=== PATIENT | female | born 1950 | race Asian ===

== ENCOUNTER 2018-07-12 22:06 | Emergency (ER) | payer MEDICAID ==
[~2018-07-12] VITALS: Ht 152.4 cm; Wt 20.4 kg
[2018-07-12 22:10] VITALS: BP_SYST 126
[2018-07-12] MEDS ORDERED: NACL 0.9% 1,000 ML IV ONE (22:36)
[2018-07-12] MEDS ORDERED: ONDANSETRON HCL 4 MG/2 ML VIAL IVP ONE (22:45)
[2018-07-12] MEDS ORDERED: PANTOPRAZOLE SODIUM 40 MG/VIAL (PROTONIX) IVP ONE (22:45)
[2018-07-12 23:07] LABS: ANION GAP 5 (5-15); CALCIUM 8.8 mg/dL (8.4-11.0); CHLORIDE 101 mmol/L (98-107); CREATININE 0.56 mg/dL (0.55-1.30); GLUCOSE 111 mg/dL (70-99); POTASSIUM 4.2 mmol/L (3.5-5.1); SODIUM SERUM 136 mmol/L (136-145); UREA NITROGEN, BLOOD 17 mg/dL (8-21)
[2018-07-12 23:12] LABS: PROTHROMBIN TIME 10.6 SECS (9.5-12.5)
[2018-07-12 23:16] LABS: ALANINE AMINOTRANSFERASE 20 U/L (12-78); ALBUMIN 3.7 g/dL (3.4-4.8); ASPARTATE AMINOTRANSFERASE 22 U/L (10-37); BASOPHILS # (AUTO) 0.1 K/uL (0.0-0.2); BASOPHILS % (AUTO) 1.5 % (0.0-2.0); EOSINOPHILS # (AUTO) 0.2 K/uL (0.0-0.4); EOSINOPHILS % (AUTO) 5.7 % (0.0-4.0); HEMATOCRIT 35.5 % (36-48); LYMPHOCYTES # (AUTO) 1.1 K/uL (1.0-5.5); LYMPHOCYTES % (AUTO) 27.1 % (20.5-51.5); MEAN CORPUSCULAR HEMOGLOBIN 33 pg (27-31); MEAN CORPUSCULAR HGB CONC 34 % (32-36); MEAN CORPUSCULAR VOLUME 97 fL (79.0-98.0); MONOCYTES # (AUTO) 0.3 K/uL (0.0-1.0); MONOCYTES % (AUTO) 8.5 % (1.7-9.3); NEUTROPHILS # (AUTO) 2.3 K/uL (1.8-7.7); NEUTROPHILS % (AUTO) 57.2 % (40.0-70.0); PLATELET COUNT (AUTO) 134 K/uL (130-430); RED BLOOD CELL COUNT(AUTO) 3.65 MIL/uL (4.2-6.2); RED CELL DISTRIBUTION WIDTH 11.6 % (9.0-15.0); TOTAL BILIRUBIN 0.5 mg/dL (0.0-1.0)
[2018-07-12 23:18] LABS: GFR AFRICAN AMERICAN 138 mL/min (>90)
[2018-07-13 01:56] VITALS: BP_SYST 126
== END 2018-07-13 01:55 | disposition home or self-care (01) ==
LOC: SED 22:06
DX: K29.70 Gastritis, unspecified, without bleeding (principal); R63.0 Anorexia; Z90.49 Acquired absence of other specified parts of digestive tract
CPT/HCPCS: 36415; 71045; 74176; 80053; 84484; 85025; 85610; 85730; 93005; 96361; 96374; 96375; 99285; C9113; J2405; J7030

== ENCOUNTER 2019-08-05 08:36 | Emergency (ER) | payer MEDICAID ==
[~2019-08-05] VITALS: Ht 157.5 cm; Wt 40.8 kg
[2019-08-05 08:36] VITALS: BP_SYST 116
[2019-08-05] MEDS ORDERED: KETOROLAC TROMETHAMINE 60 MG/2 ML VIAL IM ONE (09:30)
[2019-08-05] MEDS ORDERED: PROCHLORPERAZINE EDISYLATE 10 MG/2 ML VIAL IM ONE (09:30)
[2019-08-05 09:56] LABS: HEMATOCRIT 37.5 % (36-48); MEAN CORPUSCULAR HEMOGLOBIN 34 pg (27-31); MEAN CORPUSCULAR HGB CONC 35 % (32-36); MEAN CORPUSCULAR VOLUME 96 fL (79.0-98.0); PLATELET COUNT (AUTO) 122 K/uL (130-430); RED BLOOD CELL COUNT(AUTO) 3.89 MIL/uL (4.2-6.2); RED CELL DISTRIBUTION WIDTH 12.6 % (9.0-15.0); WHITE BLOOD COUNT (AUTO) 3.4 K/uL (4.8-10.8)
[2019-08-05 10:06] LABS: ANION GAP 6 (5-15); CALCIUM 7.9 mg/dL (8.4-11.0); CHLORIDE 102 mmol/L (98-107); CREATININE 0.59 mg/dL (0.55-1.30); GLUCOSE 103 mg/dL (70-99); POTASSIUM 3.7 mmol/L (3.5-5.1); SODIUM SERUM 136 mmol/L (136-145); UREA NITROGEN, BLOOD 7 mg/dL (8-21)
[2019-08-05 10:12] LABS: ALANINE AMINOTRANSFERASE 23 U/L (12-78); ALBUMIN 3.9 g/dL (3.4-4.8); ASPARTATE AMINOTRANSFERASE 20 U/L (10-37); TOTAL BILIRUBIN 0.5 mg/dL (0.0-1.0)
[2019-08-05 11:21] LABS: ATYPICAL LYMPHOCYTES % 16 % (0-0); LYMPHOCYTES % (MANUAL) 17 % (20-46)
[2019-08-05 11:22] LABS: BASOPHILS % (MANUAL) 0 % (0-2); EOSINOPHILS % (MANUAL) 4 % (0-7); MONOCYTES % (MANUAL) 6 % (0-11)
[2019-08-05 11:59] VITALS: BP_SYST 120
== END 2019-08-05 12:00 | disposition home or self-care (01) ==
LOC: SED 08:36
DX: N39.0 Urinary tract infection, site not specified (principal)
CPT/HCPCS: 36415; 71045; 80053; 81002; 83605; 85007; 85027; 86710; 96372; 99284; J0780; J1885

== ENCOUNTER 2020-01-16 08:47 | Inpatient (IN) | payer MEDICAID ==
[~2020-01-16] VITALS: Ht 158.8 cm; Wt 43.1 kg
[2020-01-16 08:47] VITALS: BP_SYST 134
[2020-01-16] MEDS ORDERED: NACL 0.9% 1,000 ML IV ONE (08:51)
[2020-01-16] MEDS ORDERED: ONDANSETRON HCL 4 MG/2 ML VIAL IVP ONE (09:00)
[2020-01-16] MEDS ORDERED: MORPHINE 4 MG/ML INJ. SYRINGE IVP ONE (09:00)
[2020-01-16 09:23] LABS: BASOPHILS % (AUTO) 0.4 % (0.0-2.0); EOSINOPHILS % (AUTO) 0.1 % (0.0-4.0); HEMATOCRIT 39.4 % (36-48); HEMOGLOBIN 13.4 g/dL (12.0-16.0); LYMPHOCYTES % (AUTO) 9.3 % (20.5-51.5); MEAN CORPUSCULAR HEMOGLOBIN 33 pg (27-31); MEAN CORPUSCULAR HGB CONC 34 % (32-36); MEAN CORPUSCULAR VOLUME 95 fL (79.0-98.0); MONOCYTES # (AUTO) 0.7 K/uL (0.0-1.0); NEUTROPHILS # (AUTO) 9.3 K/uL (1.8-7.7); NEUTROPHILS % (AUTO) 84.2 % (40.0-70.0); PLATELET COUNT (AUTO) 131 K/uL (130-430); RED BLOOD CELL COUNT(AUTO) 4.13 MIL/uL (4.2-6.2); RED CELL DISTRIBUTION WIDTH 12.9 % (9.0-15.0)
[2020-01-16] MEDS ORDERED: cefTRIAXone 1 GM IVPB PREMIX 50 ML IV ONE (09:30)
[2020-01-16] MEDS ORDERED: metroNIDAZOLE 500 mg/NS 100 ML IV ONE (09:30)
[2020-01-16] MEDS ORDERED: GABA-531 (09:41)
[2020-01-16] MEDS ORDERED: ECO81 PO (09:41)
[2020-01-16 10:07] LABS: ANION GAP 9 (5-15); CALCIUM 8.1 mg/dL (8.4-11.0); CHLORIDE 102 mmol/L (98-107); CREATININE 0.74 mg/dL (0.55-1.30); GLUCOSE 137 mg/dL (70-99); SODIUM SERUM 138 mmol/L (136-145); UREA NITROGEN, BLOOD 14 mg/dL (8-21)
[2020-01-16 10:09] LABS: INR 1.1 (0.8-1.2); PROTHROMBIN TIME 11.3 SECS (9.5-12.5)
[2020-01-16 10:13] LABS: ALANINE AMINOTRANSFERASE 21 U/L (12-78); ALBUMIN 3.5 g/dL (3.4-4.8); AMYLASE 40 U/L (0-100); ASPARTATE AMINOTRANSFERASE 24 U/L (10-37); LIPASE 67 U/L (73-393); TOTAL BILIRUBIN 1.2 mg/dL (0.0-1.0)
[2020-01-16] MEDS ORDERED: MIDAZOLAM HCL 5 MG/5 ML VIAL IVP ONE (10:50)
[2020-01-16] MEDS ORDERED: BUPIVACAINE /EPINEPHRINE/PF 0.25% 30 ML VIAL INJ ONE (10:50)
[2020-01-16] MEDS ORDERED: fentaNYL CITRATE 250 MCG/5 ML AMP IV ONE (10:50)
[2020-01-16] MEDS ORDERED: NS 1000 ML IV.SOLN IV ONE (10:50)
[2020-01-16] MEDS ORDERED: ROCURONIUM BROMIDE 10 MG/ML (ZEMURON) IV ONE (10:50)
[2020-01-16] MEDS ORDERED: PROPOFOL 200MG/ 20ML VIAL (DIPRIVAN) IV ONE (10:50)
[2020-01-16] MEDS ORDERED: SEVOFLURANE 15 MIN GAS INH ONE (10:50)
[2020-01-16] MEDS ORDERED: LR 1,000 ML IV.SOLN IV ONE (10:50)
[2020-01-16] MEDS ORDERED: NS IRRIG SOLN 1000 ML IR ONE (10:50)
[2020-01-16] MEDS ORDERED: fentaNYL CITRATE/PF 100 MCG/2 ML AMP IVP PRN ×2 (11:30)
[2020-01-16] MEDS ORDERED: HYDROcodone/ACETAMIN 5-325 MG TAB (NORCO/ VICODIN) PO PRN (12:15)
[2020-01-16] MEDS ORDERED: CEFAZOLIN 2 GM IVPB PREMIX 50 ML IV SCH (12:15)
[2020-01-16] MEDS ORDERED: ONDANSETRON HCL 4 MG/2 ML VIAL IVP PRN (12:15)
[2020-01-16 13:17] VITALS: BP_SYST 99
[2020-01-16] MEDS: PIPERACILLIN/TAZO 3.375 GM in NS 50 ML IV SCH ×3 (13:24→23:21)
[2020-01-16] MEDS: D5LR 1,000 ML IV SCH ×2 (13:24→19:45)
[2020-01-16] MEDS ORDERED: POTASSIUM CHLORIDE 40 MEQ, LIDOCAINE JECT 2% PF 100 MG 50 MG in NS 250 ML IV ONE (15:00)
[2020-01-16 16:27] VITALS: BP_SYST 104
[2020-01-16] MEDS: metroNIDAZOLE 500 mg/NS 100 ML IV SCH (17:06)
[2020-01-16] MEDS: CEFAZOLIN 1 GM IVPB PREMIX 50 ML IV SCH (17:06)
[2020-01-16 19:55] VITALS: BP_SYST 93
[2020-01-16] MEDS: GABAPENTIN 300 MG CAPSULE PO SCH (21:42)
[2020-01-16] MEDS: FAMOTIDINE 20 MG TABLET PO SCH (21:43)
[2020-01-16] MEDS: MAGNESIUM OXIDE 400 MG TABLET PO SCH (21:43)
[2020-01-17 00:13] VITALS: BP_SYST 97
[2020-01-17] MEDS: CEFAZOLIN 1 GM IVPB PREMIX 50 ML IV SCH (01:31)
[2020-01-17] MEDS: metroNIDAZOLE 500 mg/NS 100 ML IV SCH (02:11)
[2020-01-17] MEDS: D5LR 1,000 ML IV SCH ×2 (04:47→16:33)
[2020-01-17] MEDS: PIPERACILLIN/TAZO 3.375 GM in NS 50 ML IV SCH ×3 (04:47→16:29)
[2020-01-17 06:12] LABS: BASOPHILS % (AUTO) 0.2 % (0.0-2.0); EOSINOPHILS % (AUTO) 0.1 % (0.0-4.0); HEMOGLOBIN 10.2 g/dL (12.0-16.0); LYMPHOCYTES # (AUTO) 0.7 K/uL (1.0-5.5); LYMPHOCYTES % (AUTO) 13.2 % (20.5-51.5); MEAN CORPUSCULAR HEMOGLOBIN 33 pg (27-31); MEAN CORPUSCULAR HGB CONC 34 % (32-36); MEAN CORPUSCULAR VOLUME 97 fL (79.0-98.0); MONOCYTES # (AUTO) 0.3 K/uL (0.0-1.0); MONOCYTES % (AUTO) 5.8 % (1.7-9.3); NEUTROPHILS # (AUTO) 4.5 K/uL (1.8-7.7); NEUTROPHILS % (AUTO) 80.7 % (40.0-70.0); PLATELET COUNT (AUTO) 93 K/uL (130-430); RED CELL DISTRIBUTION WIDTH 12.8 % (9.0-15.0); WHITE BLOOD COUNT (AUTO) 5.5 K/uL (4.8-10.8)
[2020-01-17 07:09] LABS: ALANINE AMINOTRANSFERASE 16 U/L (12-78); ALBUMIN 2.3 g/dL (3.4-4.8); ANION GAP 3 (5-15); ASPARTATE AMINOTRANSFERASE 18 U/L (10-37); CHLORIDE 106 mmol/L (98-107); CREATININE 0.79 mg/dL (0.55-1.30); GLUCOSE 135 mg/dL (70-99); POTASSIUM 3.3 mmol/L (3.5-5.1); SODIUM SERUM 137 mmol/L (136-145); TOTAL BILIRUBIN 0.9 mg/dL (0.0-1.0); UREA NITROGEN, BLOOD 11 mg/dL (8-21)
[2020-01-17 08:00] VITALS: BP_SYST 99
[2020-01-17] MEDS ORDERED: ASPIRIN 81 MG TABLET(ECOTRIN) PO SCH (09:00)
[2020-01-17] MEDS: MAGNESIUM OXIDE 400 MG TABLET PO SCH ×2 (09:13→20:27)
[2020-01-17] MEDS: FAMOTIDINE 20 MG TABLET PO SCH ×2 (09:13→20:27)
[2020-01-17] MEDS: ACETAMINOPHEN 325 MG TABLET PO PRN ×2 (09:58→20:34)
[2020-01-17 12:28] VITALS: BP_SYST 104
[2020-01-17 16:48] VITALS: BP_SYST 109
[2020-01-17] MEDS ORDERED: POTASSIUM CHLORIDE 20 MEQ TAB.PRT.SR PO ONE (17:15)
[2020-01-17] MEDS ORDERED: AMOX-426 PO (17:21)
[2020-01-17] MEDS ORDERED: LACT1CAP61 PO (17:22)
[2020-01-17 19:53] VITALS: BP_SYST 102
[2020-01-17 20:00] VITALS: BP_SYST 102
[2020-01-17] MEDS: GABAPENTIN 300 MG CAPSULE PO SCH (20:27)
== END 2020-01-17 20:35 | disposition home or self-care (01) | DRG 710 ==
LOC: SED 08:47 → SMU 09:35
PROVIDERS: ADMIT Internal Medicine; ATTEND Internal Medicine
PROC: 0DTJ4ZZ Resection of Appendix, Percutaneous Endoscopic Approach (ICD-10-PCS; principal; 2020-01-16 10:45)
DX: A41.9 Sepsis, unspecified organism (principal); E43 Unspecified severe protein-calorie malnutrition; I96 Gangrene, not elsewhere classified; D64.9 Anemia, unspecified; K35.32 Acute appendicitis with perforation, localized peritonitis, and gangrene, without abscess; E87.6 Hypokalemia; N73.6 Female pelvic peritoneal adhesions (postinfective); M19.90 Unspecified osteoarthritis, unspecified site; Z79.899 Other long term (current) drug therapy; Z90.49 Acquired absence of other specified parts of digestive tract; Z83.3 Family history of diabetes mellitus; Z79.82 Long term (current) use of aspirin; Z68.1 Body mass index [BMI] 19.9 or less, adult
CPT/HCPCS: 36415; 71045; 80053; 82150-TC; 82550-TC; 83605; 83690-TC; 84484; 85025; 85610-TC; 85651-TC; 85730-TC; 87040-TC; 87081; 88304; 94010; 96365; 96367; 96375; 99285; C1727; J0690; J0696; J2250; J2270; J2405; J2543; J2704; J3010; J3480; J3490; J7030; J7050; J7120

== ENCOUNTER 2023-11-20 18:32 | Emergency (ER) | payer OTHER, MEDICAID ==
[~2023-11-20 18:32] MED LIST: AMOX-426 PO; ECO81 PO; GABA-531; LACT1CAP61 PO
[2023-11-20 19:46] VITALS: BP_SYST 117; PULSE 84; RESP 16; TEMP 98.4; O2SAT 93
[2023-11-20 19:50] VITALS: BP_SYST 117; PULSE 84; RESP 16; TEMP 98.4; O2SAT 93
== END 2023-11-20 21:03 | disposition home or self-care (01) ==
LOC: SED 18:32
DX: N13.30 Unspecified hydronephrosis (principal); Z85.51 Personal history of malignant neoplasm of bladder; Z79.899 Other long term (current) drug therapy
CPT/HCPCS: 99284